=== PATIENT | female | born 2000 ===

== ENCOUNTER 2021-11-24 22:07 | Emergency (ER) | payer SELFPAY ==
[2021-11-24 23:07] LABS: Color,Urine Yellow (Yellow)
[2021-11-24 23:12] LABS: Mucus,Urine FEW /HPF
[2021-11-24 23:32] LABS: Basophils % (Auto) 0.4 % (0.0-1.8); Eosinophils # (Auto) 0.1 K/mm3 (0.0-0.4); Eosinophils % (Auto) 0.5 % (0.0-4.3); Hematocrit 36.7 % (30.3-42.9); Hemoglobin 12.3 gm/dl (10.1-14.3); Lymphocytes # (Auto) 3.6 K/mm3 (1.2-5.4); Mean Corpuscular HGB Conc 34 % (30-34); Mean Corpuscular Volume 97 fl (79-97); Monocytes # (Auto) 0.7 K/mm3 (0.0-0.8); Platelet Count 277 K/mm3 (140-440); Red Blood Count 3.79 M/mm3 (3.65-5.03); Red Cell Distribution Width 14.5 % (13.2-15.2)
--- NOTE | 2021-11-25 04:52 | Emergency Department Report ---
ED Female HPI - General Chief complaint: Vaginal Bleeding Stated complaint: EXCESSIVE BLEEDING Time Seen by Provider: 11/25/21 04:40 Source: patient Mode of arrival: Ambulatory Limitations: No Limitations - History of Present Illness Initial comments: Patient is a 21-year-old female presents with vaginal bleeding that is been going on for approximately 3 weeks. She is soaking approximately 6 pads per day. 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 Denies any dyspareunia or vaginal discharge fever or chills no vomiting or diarrhea denies any abdominal pain/pelvic pain other than some slight cramping occasionally. No pain at this time MD Complaint: vaginal bleeding Severity scale (0 -10): 0 Quality: cramping (Occasional) Are you Now?: No Associated Symptoms: denies other symptoms. denies: vaginal discharge, abdominal pain, nausea/vomiting, fever/chills, headaches, loss of appetite, dysuria, hematuria, rash, shortness of breath, syncope, weakness - Related Data Sexually active: Yes Previous Rx's Medication Instructions Recorded Last Taken Type Nitrofurantoin Swain/M-Cryst 100 mg PO Q12HR #14 capsule 11/25/21 Unknown Rx [Macrobid CAP] Allergies Allergy/AdvReac Type Severity Reaction Status Date / Time No Known Allergies Allergy Verified 11/24/21 22:32 ED Review of Systems ROS: Stated complaint: EXCESSIVE BLEEDING Other details as noted in HPI Comment: All other systems reviewed and negative Constitutional: denies: chills, fever Eyes: denies: vision change ENT: denies: throat pain, epistaxis Respiratory: no symptoms reported. denies: cough, shortness of breath Cardiovascular: denies: chest pain, palpitations, edema Endocrine: denies: intolerance to cold, intolerance to heat Gastrointestinal: denies: abdominal pain, nausea, vomiting, diarrhea, constipation, hematemesis, melena, hematochezia Genitourinary: frequency. denies: urgency, dysuria, hematuria Musculoskeletal: denies: back pain Skin: denies: rash, lesions Neurological: denies: headache, weakness, numbness, paresthesias, vertigo Psychiatric: denies: anxiety, depression Hematological/Lymphatic: denies: easy bleeding, easy bruising ED Past Medical Hx - Past Medical History Previous Medical History?: No - Surgical History Past Surgical History?: No - Social History Smoking Status: Current Every Day Smoker Substance Use Type: Marijuana - Medications Home Medications: Home Medications Medication Instructions Recorded Confirmed Last Taken Type Nitrofurantoin Swain/M-Cryst 100 mg PO Q12HR #14 capsule 11/25/21 Unknown Rx [Macrobid CAP] ED Physical Exam - General Limitations: No Limitations General appearance: alert, in no apparent distress - Head Head exam: Present: atraumatic, normocephalic - Eye Eye exam: Present: normal appearance. Absent: scleral icterus, conjunctival injection Pupils: Present: normal accommodation - ENT ENT exam: Present: mucous membranes moist - Neck Neck exam: Present: normal inspection, full ROM - Respiratory Respiratory exam: Present: normal lung sounds bilaterally. Absent: respiratory distress, wheezes, rales, rhonchi - Cardiovascular Cardiovascular Exam: Present: regular rate, normal rhythm, normal heart sounds - GI/Abdominal GI/Abdominal exam: Present: soft. Absent: distended, tenderness, guarding, rebound, rigid - External exam: Present: normal external exam Speculum exam: Present: vaginal bleeding (Small amount of dark red blood no clots.). Absent: vaginal discharge, cervical discharge, foreign body, laceration Bi-manual exam: Present: normal bi-manual exam. Absent: cervical motion tendernes, adnexal tenderness, adnexal mass, uterine enlargement, uterine tenderness - Extremities Exam Extremities exam: Present: normal inspection - Neurological Exam Neurological exam: Present: alert, oriented X3, CN II-XII intact - Psychiatric Psychiatric exam: Present: normal affect, normal mood - Skin Skin exam: Present: warm, dry, intact ED Course Vital Signs 11/24/21 11/25/21 22:29 05:34 Temperature 99.1 F Pulse Rate 106 H 96 H Respiratory 20 14 Rate Blood Pressure 113/81 Blood Pressure 117/84 [Left] O2 Sat by Pulse 100 100 Oximetry ED Medical Decision Making - Lab Data Result diagrams: 11/24/21 22:54 - Medical Decision Making Small amount of vaginal bleeding with a normal CBC. Normal platelets. Soaking 6 pads per day. 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 She does have a slightly elevated white count with 20 WBCs in her urine and a temperature of 99.5. We will treat UTI. GC chlamydia pending. Patient does not have any concern for STDs. Same partner for 9 months who is asymptomatic. I offered her shot of Rocephin here and she declined. Critical care attestation.: If time is entered above; I have spent that time in minutes in the direct care of this critically ill patient, excluding procedure time. ED Disposition Clinical Impression: Vaginal bleeding Disposition: HOME / SELF CARE / HOMELESS Is pt being admited?: No Condition: Stable Instructions: Abnormal Uterine Bleeding Additional Instructions: Follow-up with [employer] SALES ASSOCIATE. Await GC chlamydia and urine culture. We will treat as UTI in interim but discussed with patient this is not cause for vaginal bleeding which will need to be follow-up. Pad count. Return if soaking more than 1 pad per hour. Prescriptions: Nitrofurantoin Swain/M-Cryst [Macrobid CAP] 100 mg PO Q12HR #14 capsule Referrals: PRIMARY CARE, [Primary Care Provider] - 3-5 Days Forms: Work/School Release Form(ED) Time of Disposition: 05:24
[2021-11-25 05:34] VITALS: BP 117/84
== END 2021-11-25 05:35 | disposition home or self-care (01) ==
LOC: ED 22:07
DX: N93.9 Abnormal uterine and vaginal bleeding, unspecified (principal); F17.200 Nicotine dependence, unspecified, uncomplicated; F10.20 Alcohol dependence, uncomplicated
CPT/HCPCS: 36415; 81001; 84702; 84703; 85025; 86900; 86901; 87086; 87591; 99283